=== PATIENT | female | born 1995 | race Caucasian/White ===

== ENCOUNTER 2016-08-17 20:52 | Emergency (ER) | payer MEDICAID, OTHER ==
[~2016-08-17] VITALS: Ht 165.1 cm; Wt 90.8 kg
[2016-08-17 20:55] VITALS: Ht 165.1 cm; Wt 90.8 kg
[2016-08-17] MEDS ORDERED: ONDANSETRON 4 MG INJ IV STA (21:52)
[2016-08-17] MEDS ORDERED: morphine 4 MG/ML VIAL IV STA (21:52)
--- NOTE | 2016-08-17 22:00 | ERD ---
ER Documentation Chief Complaint Date/Time DATE: 08/17/16 TIME: 21:57 Chief Complaint lower abd pain w/ vag bleeding x 2 days HPI This a 21-year-old female who presents to the emergency department today complaining of lower abdominal pain and also some vaginal bleeding for the past 2-3 days. Patient states her bleeding was heavier yesterday. States that she has irregular periods. States she is sexually active. States that her last menstrual cycle was 6 weeks ago. States that she has a history of ovarian cyst for which she has a prescription for hydrocodone. States that she took 2 of those today. Denies any nausea vomiting, dysuria, fevers or chills. ROS All systems reviewed and are negative except as per history of present illness. Medications Home Meds Active Scripts Ibuprofen* (Motrin*) 600 Mg Tab, 600 MG PO Q6, #30 TAB Prov:FELICE BARRIOS PA-C 08/18/16 Ondansetron Hcl* (Zofran*) 4 Mg Tablet, 4 MG PO Q6H for NAUSEA AND/OR VOMITING, #30 TAB Prov:FELICE BARRIOS PA-C 08/18/16 Allergies Allergies: Coded Allergies: Penicillins (Verified Allergy, Unknown, 08/17/16) PMhx/Soc Medical and Surgical Hx: pt denies Medical Hx Hx Alcohol Use: Yes Hx Substance Use: No Hx Tobacco Use: Yes Smoking Status: Current every day smoker Physical Exam Vitals Vital Signs Date Time Temp Pulse Resp B/P Pulse Ox O2 Delivery O2 Flow Rate FiO2 08/17/16 20:55 98.8 79 20 126/84 100 Physical Exam Const: Mild distress Head: Atraumatic Eyes: Normal Conjunctiva ENT: Normal External Ears, Nose and Mouth. Neck: Full range of motion..~ No meningismus. Resp: Clear to auscultation bilaterally Cardio: Regular rate and rhythm, no murmurs Abd: Soft, bilateral pelvic pain left greater than right non distended. Normal bowel sounds. No tenderness McBurney's. Skin: No petechiae or rashes Back: Bilateral paraspinal tenderness. No midline tenderness. No CVA tenderness. Ext: No cyanosis, or edema Neur: Awake and alert Psych: Normal Mood and Affect Result Diagram: 08/17/163 08/17/162212 Results 24 hrs Laboratory Tests Test 5/2/17 22:13 White Blood Count 14.710^3/ul Red Blood Count 4.6010^6/ul Hemoglobin 13.1g/dl Hematocrit 40.5% Mean Corpuscular Volume 88.0fl Mean Corpuscular Hemoglobin 28.5pg Mean Corpuscular Hemoglobin Concent 32.3g/dl Red Cell Distribution Width 13.2% Platelet Count 02328^3/UL Mean Platelet Volume 10.5fl Neutrophils % 87.5% Lymphocytes % 7.6% Monocytes % 3.9% Eosinophils % 0.5% Basophils % 0.2% Nucleated Red Blood Cells % 0.0/100WBC Neutrophils # 12.910^3/ul Lymphocytes # 1.110^3/ul Monocytes # 0.610^3/ul Eosinophils # 0.110^3/ul Basophils # 0.010^3/ul Nucleated Red Blood Cells # 0.010^3/ul Urine Color LT. YELLOW Urine Clarity SLIGHTLY CLOUDY Urine pH 7.0 Urine Specific [place] 1.015 Urine Ketones 40 Urine Nitrite NEGATIVE Urine Bilirubin NEGATIVE Urine Urobilinogen 0.2 E.U./dL Urine Leukocyte Esterase NEGATIVE Urine Microscopic RBC 0-2/HPF Urine Microscopic WBC 0-2/HPF Urine Squamous Epithelial Cells FEW Urine Amorphous Urates MODERATE Urine Bacteria MODERATE Urine Hemoglobin NEGATIVE Urine Glucose NEGATIVE% Urine Total Protein TRACE Sodium Level 142mmol/L Potassium Level 3.6mmol/L Chloride Level 101mmol/L Carbon Dioxide Level 26mmol/L Anion Gap 19 Blood Urea Nitrogen 11mg/dl Creatinine 0.65mg/dl Glucose Level 102mg/dl Calcium Level 9.4mg/dl Total Bilirubin 0.3mg/dl Direct Bilirubin 0.00mg/dl Indirect Bilirubin 0.3mg/dl Aspartate Amino Transf (AST/SGOT) 24IU/L Alanine Aminotransferase (ALT/SGPT) 24IU/L Alkaline Phosphatase 88IU/L Total Protein 8.3g/dl Albumin 4.8g/dl Globulin 3.50g/dl Albumin/Globulin Ratio 1.37 Lipase 126U/L Current Medications Medications (Trade) Dose Ordered Sig/Aide Route PRN Reason Start Time Stop Time Status Last Admin Dose Admin Morphine Sulfate (morphine) 4 mg ONCE STAT IV 08/17/16 21:52 08/17/16 21:53 DC 08/17/16 22:09 Ondansetron HCl (Zofran Inj) 4 mg ONCE STAT IV 08/17/16 21:52 08/17/16 21:53 DC 08/17/16 22:09 DIAGNOSTIC IMAGING REPORT Patient: ILIR AGUIRRE : 1995 Age: 21 Sex: F MR #: [id number] DOS: 08/17/16 0000 Ordering MD: FELICE BARRIOS PA-C Location: [facility] Room/Bed: PROCEDURE: Pelvic ultrasound. CLINICAL INDICATION: Pelvic pain. TECHNIQUE: Multiple sonographic images of the pelvis were obtained utilizing a transabdominal and endovaginal technique. The images were reviewed on a PACS workstation. COMPARISON: None. FINDINGS: The uterus is heterogeneous and measures 7.0 x 3.4 x 4.9 cm. There is a fibroid measuring 2.3 x 2.1 x 1.8 cm. The endometrial echo complex is homogeneous and measures 2.9 mm. There is no evidence for free fluid. The right ovary has a normal echotexture and measures 3.3 x 2.5 x 2.9 cm. The left ovary has a normal echotexture and measures 3.1 x 2.1 x 1.8 cm. There is normal flow to both ovaries. No adnexal masses are identified. IMPRESSION: Heterogeneous uterus with a 2.3 cm fibroid. .Britton Bonilla MD, MD Date Time Electronically viewed and signed by .Britton Bonilla MD, MD on 08/17/2016 23:47 .T/ CC: FELICE BARRIOS PA-C Procedures/[facility] This a 21-year-old female who presents the emergency department today complaining of abdominal pain and vaginal bleeding. On physical exam patient has diffuse pelvic pain left greater than right. She also indicated she had vaginal bleeding. Patient does appear to have irregular periods however she is sexually active and therefore did obtain a UA and urine test as well as laboratory work and an ultrasound Laboratory work shows an elevated white blood cell count of 14.7. She is not anemic. Platelets are within normal limits. Electrolytes are within normal limits. Glucose within normal limits. Liver functions within normal limits. Lipase within normal limits. UA is negative for infection. Urine test is negative is negative Pelvic ultrasound shows a heterogeneous uterus with a 2.3 cm fibroid. This is likely the source of the patient's pelvic pain and vaginal bleeding. Patient's vaginal bleeding may also be her normal menstrual cycle. She had no right lower quadrant pain and no tenderness at McBurney's and have low suspicion for acute surgical abdomen. There is no evidence for free fluid. There is normal flow to both ovaries. There are no adnexal masses. Low suspicion for ectopic , tubo-ovarian abscess, ovarian torsion. She was given morphine, Zofran here in the emergency department and pain improved.. She will be given a prescription for Motrin and Zofran for home. She may continue taking her usual course of hydrocodone. She had indicated that she has unprotected sex and is not currently trying to get . I have counseled the patient on the importance of using contraception to avoid unplanned she indicated that she is not trying to get . At this time the patient is stable for discharge and outpatient management. Patient should follow up with their PCP in the next 1-2 days. They may return to the emergency department sooner for any persistent or worsening of symptoms. Patient understood and agreed with the plan. Departure Diagnosis: Primary Impression: Pelvic pain Additional Impression: Vaginal bleeding Condition: FELICE Garrido PA-C August 17, 2016 22:00
[2016-08-17 22:21] LABS: ADD SCAN DIFF NO
[2016-08-17 22:23] LABS: BASOPHILS % 0.2 % (0.0-2.0); EOSINOPHILS # 0.1 10^3/ul (0.0-0.5); EOSINOPHILS % 0.5 % (0.0-7.0); HEMATOCRIT 40.5 % (37.0-47.0); HEMOGLOBIN 13.1 g/dl (12.0-16.0); LYMPHOCYTES # 1.1 10^3/ul (0.8-2.9); LYMPHOCYTES % 7.6 % (15.0-51.0); MEAN CORPUSCULAR HEMOGLOBIN 28.5 pg (29.0-33.0); MEAN CORPUSCULAR HGB CONC 32.3 g/dl (32.0-37.0); MEAN PLATELET VOLUME 10.5 fl (7.4-10.4); MONOCYTE # 0.6 10^3/ul (0.3-0.9); MONOCYTES % 3.9 % (0.0-11.0); NEUTROPHIL # 12.9 10^3/ul (1.6-7.5); NEUTROPHILS % 87.5 % (39.0-77.0); PLATELET COUNT 256 10^3/UL (140-415); RED CELL DISTRIBUTION WIDTH 13.2 % (11.5-14.5); WHITE BLOOD COUNT 14.7 10^3/ul (4.8-10.8)
[2016-08-17 22:27] LABS: ADD UMIC YES; URINE BILIRUBIN (Dip) NEGATIVE (NEGATIVE); URINE BLOOD (Dip) NEGATIVE (NEGATIVE); URINE COLOR LT. YELLOW (YELLOW); URINE GLUCOSE (Dip) NEGATIVE (NEGATIVE); URINE KETONES (Dip) 40 (NEGATIVE); URINE LEUKOCYTE ESTERASE (Dip) NEGATIVE (NEGATIVE); URINE NITRITE (Dip) NEGATIVE (NEGATIVE); URINE TOTAL PROTEIN (Dip) TRACE (NEGATIVE); URINE UROBILINOGEN (Dip) 0.2 E.U./dL (0.1-1.0)
[2016-08-17 22:36] LABS: BACTERIA,URINE MODERATE; SQUAMOUS EPITHELIAL CELL,UR FEW; URINE RBCS 0-2 /HPF (0)
[2016-08-17 22:37] LABS: ALBUMIN 4.8 g/dl (3.3-4.9)
[2016-08-17 22:38] LABS: POTASSIUM 3.6 mmol/L (3.5-5.1)
[2016-08-17 22:40] LABS: ALBUMIN/GLOBULIN RATIO 1.37; BILIRUBIN,INDIRECT 0.3 mg/dl (0-1.1); BILIRUBIN,TOTAL 0.3 mg/dl (0.2-1.3); CREATININE 0.65 mg/dl (0.44-1.00); TOTAL PROTEIN 8.3 g/dl (6.1-8.1)
[2016-08-17 22:41] LABS: CALCIUM 9.4 mg/dl (8.4-10.2)
--- NOTE | 2016-08-17 23:47 | RADRPT ---
PROCEDURE: Pelvic ultrasound. CLINICAL INDICATION: Pelvic pain. TECHNIQUE: Multiple sonographic images of the pelvis were obtained utilizing a transabdominal and endovaginal technique. The images were reviewed on a PACS workstation. COMPARISON: None. FINDINGS: The uterus is heterogeneous and measures 7.0 x 3.4 x 4.9 cm. There is a fibroid measuring 2.3 x 2.1 x 1.8 cm. The endometrial echo complex is homogeneous and measures 2.9 mm. There is no evidence for free fluid. The right ovary has a normal echotexture and measures 3.3 x 2. 5 x 2.9 cm. The left ovary has a normal echotexture and measures 3.1 x 2.1 x 1.8 cm. There is norm al flow to both ovaries. No adnexal masses are identified. IMPRESSION: Heterogeneous uterus with a 2.3 cm fibroid. .Britton Bonilla MD, MD Date Time Electronically viewed and signed by .Britton Bonilla MD, on 08/17/2016 23:47 .T/
[2016-08-18] MEDS ORDERED: IBUP-1542 PO (00:18)
[2016-08-18] MEDS ORDERED: ONDA4TAB8 PO (00:18)
[2016-08-18 00:35] VITALS: BP 116/74; PULSE 63; RESP 16; TEMP 98.5
== END 2016-08-18 00:36 | disposition home or self-care (01) ==
LOC: FTE 20:52
DX: R10.2 Pelvic and perineal pain (principal); N93.9 Abnormal uterine and vaginal bleeding, unspecified; F17.210 Nicotine dependence, cigarettes, uncomplicated
CPT/HCPCS: 76830; 76856; 80053; 81001; 83690; 85025; J2270; J2405; 81003